=== PATIENT | female | born 1960 | race Caucasian/White ===

== ENCOUNTER 2020-02-23 08:41 | Outpatient (REF) | payer OTHER, SELFPAY | END 2020-02-23 08:42 | disposition home or self-care (01) | LOC: HO.HMGCLDS 08:41 | PROVIDERS: Visit Provider Internal Medicine | DX: Z20.828 Contact with and (suspected) exposure to other viral communicable diseases (principal) | CPT/HCPCS: U0003 ==

== ENCOUNTER 2020-03-10 15:08 | Outpatient (REF) | payer OTHER, SELFPAY | END 2020-03-10 15:09 | disposition home or self-care (01) | LOC: HO.HMGCLDS 15:08 | PROVIDERS: Visit Provider Internal Medicine | DX: Z20.828 Contact with and (suspected) exposure to other viral communicable diseases (principal) | CPT/HCPCS: C9803; U0003 ==